=== PATIENT | female | born 1995 | race Caucasian/White ===

== ENCOUNTER 2020-12-16 15:03 | Emergency (ER) | payer OTHER ==
[~2020-12-16] VITALS: Ht 162.6 cm; Wt 61.7 kg
[2020-12-16] MEDS ORDERED: [UNRECOGNIZED DRUG - OTHER] (16:20)
[2020-12-16] MEDS ORDERED: RESTORIL7.5 MG (16:20)
== END 2020-12-16 19:44 | disposition home or self-care (01) ==
LOC: ER 15:03
DX: J45.998 Other asthma (principal)